=== PATIENT | female | born 1970 | race Caucasian/White ===

== ENCOUNTER 2021-09-20 06:50 | Emergency (ER) | payer OTHER, BC, SELFPAY ==
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
[2021-09-20 06:50] VITALS: BP 155/92; PULSE 81; RESP 18; TEMP 36.5; O2SAT 100
[2021-09-20 09:00] VITALS: BP 137/80; PULSE 59; RESP 12; O2SAT 100
[2021-09-20] MEDS: MORPHINE SULFATE (*CRX) 4 MG/ML INJ (09:02)
[2021-09-20] MEDS: PROPOFOL IV EMULSION 200 MG/20 ML VIAL (09:02)
[2021-09-20 09:07] VITALS: BP 128/93; PULSE 70; RESP 24; O2SAT 100
[2021-09-20] MEDS: SODIUM CHLORIDE 0.9% IV 1,000 ML 150 ML (09:27)
[2021-09-20 09:31] VITALS: BP 112/83; PULSE 60; RESP 16; O2SAT 98
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
[2021-09-20 10:45] VITALS: BP 125/70; PULSE 57; RESP 16
== END 2021-09-20 10:45 | disposition home or self-care (01) ==
PROVIDERS: Emergency Provider Family Medicine
DX: S43.085A Other dislocation of left shoulder joint, initial encounter (principal); V89.2XXA Person injured in unspecified motor-vehicle accident, traffic, initial encounter
CPT/HCPCS: 23650; 73030; 99285; J2270; J2704; J7030

== ENCOUNTER → 2021-10-06 06:51 | Outpatient (CLI) | payer OTHER, BC, SELFPAY ==
--- NOTE | ~2021-10-06 | MR_ITS ---
EXAMINATION: MR shoulder LT wo con DATE: 10/06/2021 07:27 INDICATION: Posterior subluxation of unspecified humerus. Left shoulder pain. TECHNIQUE: Magnetic resonance imaging (MRI) of the left shoulder was performed without intravenous co ntrast. Sequences included axial PD-weighted FS FSE, coronal oblique PD-weighted FS FSE and T2-weight ed FS FSE, and sagittal oblique T2-weighted FS FSE and T1-weighted FSE. COMPARISON: Left shoulder radiographs 09/20/2021 FINDINGS: Coracoacromial arch: The acromion undersurface is flat in morphology (type I). There is severe acromioclavicular joint ost eoarthritis including inferiorly directed osteophytes. There is mild subacromial/subdeltoid bursitis. Rotator cuff: There is moderate supraspinatus tendinopathy and mild infraspinatus tendinopathy. Teres minor tendon is normal. Subscapularis tendon is normal. There is no asymmetric fatty atrophy of the rotator cuff m uscle bellies. There is edema of the infraspinatus and teres minor muscle bellies, consistent with mi ld strains (grade 1). Biceps tendon and glenoid labrum: Biceps tendon is in bicipital groove. Intra-articular biceps tendon is normal. The glenoid labrum is intact. Fluid: There is a small glenohumeral joint effusion. Bones/cartilage: There is normal alignment at glenohumeral joint. There is an impaction fracture deformity of anterome dial humeral head (reversed Hill-Sachs fracture) with edema-like marrow signal intensity. Humeral hea d cartilage and glenoid cartilage are unremarkable. IMPRESSION: 1. Subacute reverse Hill-Sachs fracture. 2. Moderate rotator cuff tendinopathy. No tear. 3. Mild strains of infraspinatus and teres minor muscles (grade 1). 4. Severe acromioclavicular joint osteoarthritis. 5. Small glenohumeral joint effusion. 6. Mild subacromial/subdeltoid bursitis. Reviewed, dictated and finalized at location A.
== END ==
PROVIDERS: PCP Orthopaedic Surgery; Visit Provider Orthopaedic Surgery
DX: S43.02 Posterior subluxation and dislocation of humerus (principal); S42.292A Other displaced fracture of upper end of left humerus, initial encounter for closed fracture; M75.82 Other shoulder lesions, left shoulder; S46.812A Strain of other muscles, fascia and tendons at shoulder and upper arm level, left arm, initial encounter; M19.012 Primary osteoarthritis, left shoulder; M25.412 Effusion, left shoulder; M75.52 Bursitis of left shoulder
CPT/HCPCS: 73221